=== PATIENT | female | born 1980 | race African-American/Black ===

== ENCOUNTER 2017-05-21 17:48 | Emergency (ER) | payer MEDICAID ==
[~2017-05-21] VITALS: Ht 162.6 cm; Wt 145.1 kg
[2017-05-21 18:50] VITALS: BP 115/82
[2017-05-21] MEDS ORDERED: CEPHALEXIN500 MG ORAL (19:30)
[2017-05-21 19:31] LABS: APPEARANCE,URINE CLEAR
[2017-05-21 19:32] LABS: KETONES,URINE NEGATIVE (NEGATIVE); LEUKOCYTE ESTERASE ,URINE 1+ (NEGATIVE); NITRITE,URINE NEGATIVE (NEGATIVE); PH,URINE 5 (4.5-8.0); PROTEIN,URINE NEGATIVE (NEGATIVE); UROBILINOGEN,URINE NORMAL MG/DL (0.0-1.0)
[2017-05-21 19:33] LABS: CALCIUM OXALATE CRYSTALS,UR MANY /LPF
[2017-05-21 19:34] LABS: BACTERIA,URINE FEW /HPF; RBC,URINE 0-2 /HPF (0 - 2); SQUAMOUS EPITHELIAL CELL,UR MODERATE /LPF (NONE/OCC)
[2017-05-21 19:45] VITALS: BP 115/82
--- NOTE | 2017-05-21 21:26 | Emergency Room Report ---
History of Present Illness General Chief Complaint: Female Urogenital Problems Source: Patient Present Illness [facility] The patient is a 37-year-old female presenting for and dysuria. She states that she took a test last week at home which was positive. Last normal menstrual period was 2 months prior. She has not been able to followup with OB. She has been experiencing dysuria for the past 3 days. She is also having increased urinary frequency. Pain described as a 7/ 10 burning sensation. Does not radiate. She denies vaginal discharge, vaginal bleeding, or back pain. She denies nausea, vomiting, fever, chills, abd pain. Allergies: Coded Allergies: No Known Allergies (Unverified , 05/21/17) Patient History Past Medical History: see triage record Pertinent Family History: none Last Menstrual Period: March 2017 Now: Yes : 3 Para: 2 Reviewed Nursing Documentation: PMH: Agreed, PSxH: Agreed Nursing Documentation-PMH Past Medical History: No History, Except For Hx Hypertension: Yes Review of Systems All Other Systems: negative except mentioned in HPI Physical Exam Vital Signs Date Time Temp Pulse Resp B/P Pulse Ox O2 Delivery O2 Flow Rate FiO2 05/21/17 18:13 98.1 83 18 115/82 100 Sp02 EP Interpretation: reviewed, normal General Appearance: no apparent distress, alert, GCS 15, non-toxic Head: normocephalic, atraumatic Eyes: bilateral eye PERRL, bilateral eye normal inspection ENT: hearing grossly normal, normal pharynx, no angioedema, normal voice Gastrointestinal: normal bowel sounds, non tender, soft, non-distended, no guarding, no rebound Rectal: deferred Genitourinary: normal inspection, no CVA tenderness Musculoskeletal: back normal, gait/station normal, normal range of motion, non- tender Neurologic: alert, oriented x3, responsive, motor strength/tone normal, sensory intact, speech normal Psychiatric: judgement/insight normal, memory normal, mood/affect normal, no suicidal/homicidal ideation Skin: normal color, no rash, warm/dry, well hydrated Lymphatic: no adenopathy Medical Decision Making PA Attestation Dr. Esteban is my supervising physician. Patient management was discussed with my supervising physician Diagnostic Impression: Primary Impression: First trimester Additional Impression: Urinary tract infection Qualified Codes: N30.00 - Acute cystitis without hematuria ER Course Patient is a 37-year-old female presenting for dysuria Differential diagnosis considered but not limited to: UTI, vaginitis, pyelonephritis, pyelonephrosis, PID, ectopic PE unremarkable. Abd is soft and non tender. No CVA tenderness Urinalysis shows white blood cells, bacteria, and calcium oxalate. The patient was informed of these results. She is a prescription for Keflex and needs to follow up with OB. She was informed that to to her age she is at high risk. ER precautions given Laboratory Tests Test 05/21/17 18:30 Urine Color Yellow Urine Appearance Clear Urine pH 5 (4.5-8.0) Urine Specific [place] 1.025 (1.005-1.035) Urine Protein Negative (NEGATIVE) Urine Glucose (UA) Negative (NEGATIVE) Urine Ketones Negative (NEGATIVE) Urine Occult Blood Negative (NEGATIVE) Urine Nitrite Negative (NEGATIVE) Urine Bilirubin Negative (NEGATIVE) Urine Urobilinogen Normal MG/DL (0.0-1.0) Urine Leukocyte Esterase 1+ (NEGATIVE) H Urine RBC 0-2 /HPF (0 - 2) Urine WBC 10-15 /HPF (0 - 2) H Urine Squamous Epithelial Cells Moderate /LPF (NONE/OCC) H Urine Calcium Oxalate Crystals Many /LPF (NONE) Urine Bacteria Few /HPF (NONE) Urine HCG, Qualitative Positive Lab Results Impression WBCs with fe bacteria Last Vital Signs Date Time Temp Pulse Resp B/P Pulse Ox O2 Delivery O2 Flow Rate FiO2 05/21/17 19:45 98.1 78 18 115/82 100 Status: improved Disposition: HOME, SELF-CARE Condition: Improved Scripts Cephalexin* (KEFLEX*) 500 Mg Capsule 500 MG ORAL EVERY 12 HOURS, #14 CAP 0 Refills Prov: ARTURO COAMPO 05/21/17 Patient Instructions: Urinary Tract Infection, First Trimester of Additional Instructions: I discussed my findings with the patient. All questions and concerns have been answered. Treatment and medication compliance have been addressed. I advised the patient that they need to follow up with OB as soon as possible. Return to ED if symptoms worsen, new symptoms arise such as vaginal bleeding or abdominal pain, or if needed for any reason. Patient verbalized understanding of discharge instructions. ARTURO OCAMPO May 21, 2017 21:26
== END 2017-05-21 19:45 | disposition home or self-care (01) ==
LOC: EMR 19:05
DX: O23.41 Unspecified infection of urinary tract in pregnancy, first trimester (principal); O09.521 Supervision of elderly multigravida, first trimester; O16.1 Unspecified maternal hypertension, first trimester
CPT/HCPCS: 81003; 81025; 87086; 99283

== ENCOUNTER 2019-10-04 01:52 | Emergency (ER) | payer MEDICAID ==
[~2019-10-04] VITALS: Ht 162.6 cm; Wt 154.2 kg
[~2019-10-04 01:52] MED LIST: CEPHALEXIN500 MG ORAL
--- NOTE | 2019-10-04 02:18 | NUR ---
ED Nurse Note: pt presents to the ED from home c/o a 06/26 CHAO. pt reports that she has gotten migraines in the past and that this feels like her migraine px .pt took tylenol [employer] without relief of symptoms. pt reports the px as being in the front and top of her head. pt also c/o lower back px x 1 day but denies any injury or trauma to the area. pt denies SOB, N/V or any / GI symptoms at this time. Addendum: 10/04/19 at 0221 by MAURICIOE pt also has photophobia and states that "bright lights make it worse."
[2019-10-04 02:20] VITALS: BP 115/68
--- NOTE | 2019-10-04 02:20 | NUR ---
ED Nurse Note: IV line established. Blood specimen collected and sent to lab.
[2019-10-04] MEDS ORDERED: Ketorolac 30mg Inj IV ONE (03:00)
[2019-10-04 03:22] LABS: BASOPHILS % (AUTO) 1.2 % (0.0-2.0); EOSINOPHILS % (AUTO) 1.9 % (0.0-3.0); HEMATOCRIT 37.9 % (37.0-47.0); HEMOGLOBIN 12.6 G/DL (12.0-16.0); MEAN CORPUSCULAR VOLUME 90 FL (80-99); MONOCYTES % (AUTO) 5.3 % (1.0-10.0); NEUTROPHILS % (AUTO) 62.6 % (45.0-75.0); PLATELET COUNT 333 K/UL (150-450); RED BLOOD COUNT 4.22 M/UL (4.20-5.40); RED CELL DISTRIBUTION WIDTH 12.7 % (11.6-14.8); WHITE BLOOD COUNT 7.5 K/UL (4.8-10.8)
[2019-10-04 03:34] LABS: ANION GAP 8 mmol/L (5-15); BLOOD UREA NITROGEN 7 mg/dL (7-18); CALCIUM 8.8 MG/DL (8.5-10.1); CARBON DIOXIDE 29 MMOL/L (21-32); CHLORIDE 105 MMOL/L (98-107); CREATININE 0.9 MG/DL (0.55-1.30); POTASSIUM 3.4 MMOL/L (3.5-5.1); SODIUM 141 MMOL/L (136-145)
[2019-10-04 03:39] LABS: ALANINE AMINOTRANSFERASE 17 U/L (12-78); ALBUMIN 3.1 G/DL (3.4-5.0); ALBUMIN/GLOBULIN RATIO 0.8 (1.0-2.7); ALKALINE PHOSPHATASE 72 U/L (46-116); ASPARTATE AMINO TRANSFERASE 12 U/L (15-37); BILIRUBIN,TOTAL 0.4 MG/DL (0.2-1.0)
--- NOTE | 2019-10-04 04:45 | NUR ---
ED Nurse Note: Patient able to walk to the restroom with steady gait.
[2019-10-04] MEDS ORDERED: FIORICET1 EA ORAL (04:54)
--- NOTE | 2019-10-04 04:54 | Emergency Room Report ---
History of Present Illness General Chief Complaint: Headache Source: Patient Present Illness HPI 39-year-old female who presents with headache, right-sided behind the eye. Symptoms started 4 hours ago... Patient with a reported history of migraine headaches with similar exacerbations in the past. She normally takes Excedrin but she did not have any today. She tried to take Tylenol with minimal improvement on her headache. She denies any vomiting but reports associated nausea. She denies any fever, chills, neck pain, diarrhea, weakness, dizziness , vision changes. Denies any trauma or head injury Allergies: Coded Allergies: No Known Allergies (Unverified , 05/21/17) Patient History Last Menstrual Period: 10/03/19 Now: No : 3 Para: 3 Nursing Documentation-[facility] Past Medical History: No Stated History Hx Cardiac Problems: No Hx Hypertension: Yes Hx Pacemaker: No Hx Asthma: No Hx COPD: No Hx Diabetes: No Hx Cancer: No Hx Gastrointestinal Problems: No Hx Dialysis: No History Of Psychiatric Problem: No Hx Neurological Problems: No Hx Cerebrovascular Accident: No Hx Seizures: No Review of Systems Constitutional: Denies: chills, fever Respiratory: Denies: cough, shortness of breath Cardiovascular: Denies: chest pain, palpitations Gastrointestinal: Denies: diarrhea, vomiting Genitourinary: Denies: hematuria, pain Musculoskeletal: Denies: joint swelling Skin: Denies: rash, lesions Neurological: Reports: headache; Denies: dizziness Physical Exam Vital Signs Date Time Temp Pulse Resp B/P (MAP) Pulse Ox O2 Delivery O2 Flow Rate FiO2 10/04/19 02:00 98.4 88 18 115/68 (84) 96 Room Air Sp02 EP Interpretation: reviewed General Appearance: well appearing, no apparent distress, non-toxic Head: normocephalic, atraumatic Eyes: bilateral eye normal inspection ENT: hearing grossly normal, EOM grossly intact, moist mucus membranes Neck: supple Respiratory: lungs clear, normal breath sounds, no respiratory distress, speaking full sentences Cardiovascular #1: regular rate, rhythm, normal capillary refill Cardiovascular #2: 2+ radial (R), 2+ radial (L) Gastrointestinal: soft, non-distended Rectal: deferred Musculoskeletal: moves extm spontaneously, no lower extremity edema Neurologic: alert, motor strength/tone normal, carburetor specialist III-XII nml as tested, oriented, oriented x3, grossly normal Psychiatric: mood/affect normal Skin: warm/dry, normal turgor Medical Decision Making Diagnostic Impression: Primary Impression: Headache ER Course 39-year-old female presents with headache. History of migraines. No signs of neurological deficits. Will order pain medication, IV fluids and labs. Laboratory Tests Test 10/04/19 03:07 White Blood Count 7.5 K/UL (4.8-10.8) Red Blood Count 4.22 M/UL (4.20-5.40) Hemoglobin 12.6 G/DL (12.0-16.0) Hematocrit 37.9 % (37.0-47.0) Mean Corpuscular Volume 90 FL (80-99) Mean Corpuscular Hemoglobin 29.9 PG (27.0-31.0) Mean Corpuscular Hemoglobin Concent 33.3 G/DL (32.0-36.0) Red Cell Distribution Width 12.7 % (11.6-14.8) Platelet Count 333 K/UL (150-450) Mean Platelet Volume 5.5 FL (6.5-10.1) L Neutrophils (%) (Auto) 62.6 % (45.0-75.0) Lymphocytes (%) (Auto) 29.0 % (20.0-45.0) Monocytes (%) (Auto) 5.3 % (1.0-10.0) Eosinophils (%) (Auto) 1.9 % (0.0-3.0) Basophils (%) (Auto) 1.2 % (0.0-2.0) Sodium Level 141 MMOL/L (136-145) Potassium Level 3.4 MMOL/L (3.5-5.1) L Chloride Level 105 MMOL/L (98-107) Carbon Dioxide Level 29 MMOL/L (21-32) Anion Gap 8 mmol/L (5-15) Blood Urea Nitrogen 7 mg/dL (7-18) Creatinine 0.9 MG/DL (0.55-1.30) Estimate Glomerular Filtration Rate > 60 mL/min (>60) Glucose Level 95 MG/DL (74-106) Calcium Level 8.8 MG/DL (8.5-10.1) Total Bilirubin 0.4 MG/DL (0.2-1.0) Aspartate Amino Transferase (AST) 12 U/L (15-37) L Alanine Aminotransferase (ALT) 17 U/L (12-78) Alkaline Phosphatase 72 U/L (46-116) Troponin I Pending Total Protein 7.2 G/DL (6.4-8.2) Albumin 3.1 G/DL (3.4-5.0) L Globulin 4.1 g/dL Albumin/Globulin Ratio 0.8 (1.0-2.7) L Lab Results Impression Mild hypokalemia Reevaluation Time: 04:53 Last Vital Signs Date Time Temp Pulse Resp B/P (MAP) Pulse Ox O2 Delivery O2 Flow Rate FiO2 10/04/19 03:41 98.4 10/04/19 02:20 89 18 115/68 96 Room Air Status: improved Reevaluation Impression Patient's headache improved. Recommended to take Fioricet for pain control as needed. Or take Excedrin as she is in the past. Follow-up with neurology for likely headaches. Return to emergency room if any new or worsening symptoms Disposition: HOME, SELF-CARE Condition: Stable Scripts Acetamin/Butalbital/Caffeine* (FIORICET*) 1 Ea Tab 1 TAB ORAL Q4H for 10 Days, #28 TAB Prov: Devin Bunn M.D. 10/04/19 Referrals: NON PHYSICIAN (PCP) Patient Instructions: General Headache Without Cause Additional Instructions: Please follow-up with your primary care doctor in 2 to 3 days for reevaluation. Return to emergency room if you have worsening headache or any new symptoms Devin Bunn M.D. Oct 04, 2019 04:54
[2019-10-04 05:14] VITALS: BP 121/73
--- NOTE | 2019-10-04 05:14 | NUR ---
ED Nurse Note: Pt cleared by ERMD for discharge. DC instructions/prescription was given and explained to pt and verbalized understanding of teachings. All medical deviecs such as ID band and IV line removed. Pt is AAO x4, ambulatory and left with all personal belongings. Accompanied by s/o.
== END 2019-10-04 05:15 | disposition home or self-care (01) ==
LOC: EMR 02:35
DX: R51 Headache (principal); I10 Essential (primary) hypertension
CPT/HCPCS: 36415; 80053; 84484; 85025; 96361; 96374; J1885; J7030; Z7502; 99284